=== PATIENT | female | born 1965 | race Caucasian/White ===

== ENCOUNTER 2025-07-28 08:15 | Outpatient (CLI) | payer OTHER, SELFPAY ==
--- NOTE | 2025-07-28 08:18 | XR_ITS ---
FINAL REPORT CLINICAL HISTORY: SCREENING COMPARISON: None FINDINGS: Using L1-4, the bone mineral density of the spine is 0.897 g/cm2, corresponding to T-score of -1.4. Using the left hip, the bone mineral density of the femoral neck is 0.73 g/cm2, corresponding to a T-score of -1.3. Using the right hip, the bone mineral density of the femoral neck is 0.751 g/cm2, corresponding to a T-score of -0.9. NOTE: T-score: Standard deviation compared with peak bone mass of young adult mean. *Following the recommendations of the International Society of Bone densitometry, classification of hip BMD is based on the lower of two T-scores; total hip or femoral neck. IMPRESSION: Normal bone mineral density of the right hip. Diminished bone mineral density of the left hip and lumbar spine consistent with osteopenia. Reviewed, Interpreted and Dictated by Duke Mims MD Transcribed by Ly Coe Authenticated and [facility]
--- NOTE | 2025-07-28 08:18 | MM_ITS ---
PROCEDURE INFORMATION: Exam: MG Bilateral Screening 3D Mammography Exam date and time: 07/28/2025 8:38 AM Age: 60 years old Clinical indication: Screening examination TECHNIQUE: Imaging protocol: Bilateral Screening tomosynthesis and 2D mammography including computer-aided detection (CAD) when performed. COMPARISON: No relevant prior studies available. FINDINGS: MAMMOGRAPHY: Breast composition: There are scattered areas of fibroglandular density. Mass: No suspicious masses. Architectural distortion: None. Calcifications: No suspicious calcifications. Asymmetric density: None. Skin thickening: None. Axillary adenopathy: None. IMPRESSION: No mammographic evidence of malignancy. Annual screening is recommended unless otherwise clinically indicated. ASSESSMENT: BI-RADS Category 1: Negative.
--- NOTE | 2025-07-28 08:19 | CT_ITS ---
FINAL REPORT TECHNIQUE: Axial images were obtained from the lung apex to the mid abdomen by computed tomography. This study was performed with techniques to keep radiation doses as low as reasonably achievable (ALARA). Individualized dose reduction techniques using automated exposure control or adjustment of mA and/or kV according to the patient's size were employed. CLINICAL HISTORY: lung screening, smokes 1 1/2 pack per day x 45 yrs, copd, exposed to second hand smoke FINDINGS: CHEST CT LOW DOSE CTDI vol (mGy): 2.90 DLP (mGy-cm): 103.42 There is no axillary adenopathy. There is no hilar or mediastinal adenopathy. The heart is normal in size. The ascending aorta measures 3.9 cm in diameter. There is moderate coronary artery calcification. There is no pericardial or pleural effusion. Lung window images demonstrate no suspicious infiltrate or nodule. Limited images of the upper abdomen are unremarkable. IMPRESSION: No suspicious pulmonary nodules. Lung RADS category 1. Recommend 12 month follow-up low-dose chest CT. Reviewed, Interpreted and Dictated by Duke Mims MD Transcribed by Dia Hassan Authenticated and [facility]
== END 2025-07-28 23:59 | disposition home or self-care (01) ==
LOC: RAD 08:15
PROVIDERS: PCP Nurse Practitioner Family; Visit Provider Nurse Practitioner Family
DX: Z12.31 Encounter for screening mammogram for malignant neoplasm of breast (principal); J44.9 Chronic obstructive pulmonary disease, unspecified; R92.323 Mammographic fibroglandular density, bilateral breasts; R93.6 Abnormal findings on diagnostic imaging of limbs; F17.210 Nicotine dependence, cigarettes, uncomplicated; Z12.2 Encounter for screening for malignant neoplasm of respiratory organs; R93.7 Abnormal findings on diagnostic imaging of other parts of musculoskeletal system
CPT/HCPCS: 71271; 77063; 77067; 77080